=== PATIENT | female | born 1985 | race Caucasian/White ===

== ENCOUNTER 2022-02-21 16:52 | Emergency (ER) | payer OTHER ==
[~2022-02-21] VITALS: Ht 165.1 cm; Wt 98.9 kg
[2022-02-21 18:29] LABS: BASOPHILS ABSOLUTE AUTO 0.03 K/mm3 (0.00-0.23); BASOPHILS PERCENT AUTO 0 % (0-2); EOSINOPHILS PERCENT AUTO 2 % (0-6); Hematocrit 42.1 % (33.0-51.0); IMMATURE GRAN ABSOLUTE AUTO 0.02 K/mm3 (0.00-0.10); IMMATURE GRAN PERCENT AUTO 0 % (0-1); LYMPHOCYTES ABSOLUTE AUTO 2.68 K/mm3 (0.84-5.20); LYMPHOCYTES PERCENT AUTO 31 % (21-46); MONOCYTES ABSOLUTE AUTO 0.62 K/mm3 (0.16-1.47); MONOCYTES PERCENT AUTO 7 % (4-13); Mean Corpuscular HGB 30.4 pg (26.0-34.0); Mean Corpuscular HGB Conc 33.3 g/dL (31.5-36.5); Mean Corpuscular Volume 91 fL (80-100); Mean Platelet Volume 10.4 fL (9.1-12.4); NEUTROPHILS ABSOLUTE AUTO 5.24 K/mm3 (1.96-9.15); NEUTROPHILS PERCENT AUTO 60 % (41-73); Platelet Count 202 K/mm3 (150-400); RDW Coefficient Variation 14.2 % (11.7-14.2); RDW Standard Deviation 47.7 fL (35.1-46.3); Red Blood Cell Count 4.61 M/mm3 (3.80-5.20); White Blood Cell Count 8.79 K/mm3 (4.00-11.30)
[2022-02-21 18:43] LABS: Albumin, Blood 3.8 g/dL (3.4-5.0); Bilirubin, Total 0.3 mg/dL (0.1-1.0); Bun/Creatinine Ratio 23.2 (12.0-20.0); Calcium, Blood 8.9 mg/dL (8.5-10.1); Creatinine, Blood 0.82 mg/dL (0.40-1.00); Globulin, Blood 3.7 g/dL (2.2-4.0); Potassium, Blood 3.7 mmol/L (3.5-5.5); Total Protein, Blood 7.5 g/dL (6.4-8.2)
[2022-02-21] MEDS ORDERED: ESCI20 (19:53)
[2022-02-21] MEDS ORDERED: BUSP5 (19:54)
[2022-02-21 19:56] LABS: Source, Urine Clean Catch
[2022-02-21] MEDS ORDERED: CLON.5 (19:56)
[2022-02-21 20:01] LABS: Bilirubin, Urine Neg (Neg); Blood, Urine 2+ (Neg); Color, Urine Yellow (P-Yellow); Glucose Qualitative, Urine Neg (Neg); Ketones, Urine Neg (Neg); Leukocyte Esterase, Urine Neg (Neg); Nitrite, Urine Neg (Neg); Protein, Urine Neg (Neg); Urobilinogen, Urine NORM (Normal)
[2022-02-21 20:09] LABS: Appearance, Urine Hazy (Clear)
[2022-02-21 20:10] LABS: Bacteria Few /hpf; Mucus Light (0-Heavy); Squamous Epithelial Cells Few /hpf (Few); White Blood Cells, Urine 0-2 /hpf (0-5)
== END 2022-02-21 21:45 | disposition home or self-care (01) ==
LOC: ER 16:52
PROVIDERS: Physician Assistant
DX: R10.32 Left lower quadrant pain (principal)
CPT/HCPCS: 36415; 74176; 80053; 81001; 83690; 84703; 85025; J1885

== ENCOUNTER → 2022-03-10 | Outpatient (CLI) | payer OTHER ==
[~2022-03-10] MED LIST: BUSP5; CLON.5; ESCI20
[2022-03-13 00:10] LABS: CHLAMYDIA TRACHOMATIS, NAA Negative (Negative)
== END | disposition home or self-care (01) ==
LOC: LAB SHORT 15:00 → LAB 15:00
PROVIDERS: Physician Assistant
DX: R10.2 Pelvic and perineal pain (principal)
CPT/HCPCS: 87491; 87591

== ENCOUNTER → 2022-03-23 | Outpatient (CLI) | payer OTHER ==
[2022-03-24 15:11] LABS: HPV 16 Negative (Negative); HPV 18 Negative (Negative); HPV OTHER HR TYPES Negative (Negative)
== END | disposition home or self-care (01) ==
LOC: LAB SHORT 16:55
PROVIDERS: Obstetrics & Gynecology
DX: Z01.419 Encounter for gynecological examination (general) (routine) without abnormal findings (principal)
CPT/HCPCS: 87624; G0123

== ENCOUNTER → 2022-06-02 | Outpatient (CLI) | payer OTHER ==
[2022-06-13 17:07] LABS: ANABASINE 2 ng/mL (.); COTININE >1000.0 ng/mL (.); NICOTINE >1000.0 ng/mL (.)
== END | disposition home or self-care (01) ==
LOC: LAB SHORT 13:49 → LAB 13:49
PROVIDERS: Obstetrics & Gynecology
DX: Z01.818 Encounter for other preprocedural examination (principal)
CPT/HCPCS: G0480

== ENCOUNTER → 2022-12-27 | Outpatient (CLI) | payer OTHER ==
[~2022-12-27] MED LIST changes: +ACET500 PO; -ESCI20; +ESCI20 PO; +GABA300 PO; +IBUP800 PO; +Norco 5-325 Ta1 EACH PO; +OXYC5 PO
== END ==
LOC: LAB 15:40 → LAB SHORT 15:40
DX: R30.0 Dysuria (principal)
CPT/HCPCS: 87077; 87086; 87186

== ENCOUNTER 2023-07-17 10:09 | Emergency (ER) | payer OTHER ==
[~2023-07-17] VITALS: Ht 165.1 cm; Wt 99.8 kg
[~2023-07-17 10:09] MED LIST changes: +Percocet 5-3251 EACH PO
[2023-07-17 10:17] VITALS: BP 136/102
[2023-07-17] MEDS ORDERED: Norco 5-325 Ta1 EACH PO (10:41)
[2023-07-17] MEDS ORDERED: METPRE4DP PO (10:41)
== END 2023-07-17 10:51 | disposition home or self-care (01) ==
LOC: ER 10:09
DX: M54.41 Lumbago with sciatica, right side (principal); Z79.899 Other long term (current) drug therapy; F17.200 Nicotine dependence, unspecified, uncomplicated
CPT/HCPCS: 96372; 99283-25; A9270; J1885

== ENCOUNTER 2023-07-19 09:16 | Emergency (ER) | payer OTHER ==
[~2023-07-19] VITALS: Ht 165.1 cm; Wt 99.8 kg
[~2023-07-19 09:16] MED LIST changes: +METPRE4DP PO
[2023-07-19 09:49] VITALS: BP 155/90
[2023-07-19] MEDS ORDERED: Amitriptyline H10 MG (09:57)
[2023-07-19] MEDS ORDERED: MELA3 (09:57)
[2023-07-19] MEDS ORDERED: DIAZ2 PO (10:25)
[2023-07-19] MEDS ORDERED: KETO10 PO (10:25)
== END 2023-07-19 10:40 | disposition home or self-care (01) ==
LOC: ER 09:16
DX: M54.41 Lumbago with sciatica, right side (principal); M54.42 Lumbago with sciatica, left side; F17.200 Nicotine dependence, unspecified, uncomplicated; Z79.899 Other long term (current) drug therapy; X50.0XXA Overexertion from strenuous movement or load, initial encounter; W18.49XA Other slipping, tripping and stumbling without falling, initial encounter
CPT/HCPCS: 96372; 99283; J1885

== ENCOUNTER 2023-08-27 09:35 | Emergency (ER) | payer OTHER ==
[~2023-08-27] VITALS: Ht 165.1 cm; Wt 99.8 kg
[~2023-08-27 09:35] MED LIST changes: +Amitriptyline H10 MG; +DIAZ2 PO; +KETO10 PO; +MELA3
[2023-08-27 10:17] VITALS: BP 131/99
[2023-08-27] MEDS ORDERED: Diazepam 5 MG Tab PO ONE (13:45)
[2023-08-27] MEDS ORDERED: Acetaminophen 500 MG Tab PO ONE (13:45)
[2023-08-27] MEDS ORDERED: Lidocaine 4% 1 Patch TOP ONE (13:45)
[2023-08-27] MEDS ORDERED: Ketorolac Tromethamine 30mg Vial IM ONE (13:50)
[2023-08-27] MEDS ORDERED: Robaxin750 MG PO (13:53)
== END 2023-08-27 14:08 | disposition home or self-care (01) ==
LOC: ER 09:35
DX: M54.50 Low back pain, unspecified (principal); F17.200 Nicotine dependence, unspecified, uncomplicated; Z79.899 Other long term (current) drug therapy; X50.9XXA Other and unspecified overexertion or strenuous movements or postures, initial encounter; Y93.89 Activity, other specified
CPT/HCPCS: 96372; 99282-25; A9270; J1885

== ENCOUNTER 2024-02-19 09:56 | Emergency (ER) | payer OTHER ==
[~2024-02-19] VITALS: Ht 165.1 cm; Wt 104.3 kg
[~2024-02-19 09:56] MED LIST changes: +Robaxin750 MG PO
[2024-02-19 10:08] VITALS: BP 148/108
[2024-02-19] MEDS ORDERED: Neurontin800 MG PO (10:11)
[2024-02-19] MEDS ORDERED: METFORMIN HCL500 M2 PO (10:11)
[2024-02-19] MEDS ORDERED: Dexamethasone Sod Phos 10 MG/ML 1ML VIAL PO ONE (10:35)
[2024-02-19] MEDS ORDERED: Metoclopramide HCl 5MG / ML 2ML Vial IM ONE (10:35)
[2024-02-19] MEDS ORDERED: Ketorolac Tromethamine 30mg Vial IM ONE (10:35)
== END 2024-02-19 12:02 | disposition home or self-care (01) ==
LOC: ER 09:56
DX: G44.209 Tension-type headache, unspecified, not intractable (principal); Z79.84 Long term (current) use of oral hypoglycemic drugs; Z79.899 Other long term (current) drug therapy
CPT/HCPCS: 96372; 99283-25; J1100; J1885; J2765

== ENCOUNTER → 2025-03-19 | Outpatient (CLI) | payer OTHER ==
[~2025-03-19] MED LIST changes: +METFORMIN HCL500 M2 PO; +Neurontin800 MG PO
== END ==
LOC: LAB 17:57 → LAB SHORT 17:57
DX: R30.0 Dysuria (principal); R35.0 Frequency of micturition
CPT/HCPCS: 87077; 87086; 87186